=== PATIENT | female | born 1965 | race Caucasian/White ===

== ENCOUNTER 2021-02-24 13:40 | Inpatient (IN) | payer BC ==
[~2021-02-24] VITALS: Ht 167.6 cm; Wt 86.2 kg
[~2021-02-24 13:40] MED LIST: ASPIRIN EC81 MG PO; FENOFIBRATE134 MG PO; LISINOPRIL10 MG PO; LOSARTAN POTAS100 MG PO; LOSARTAN POTASS50 MG PO; NOVOLOG 10100 UNITS2 SQ; OMNICEF 300 MG300 MG PO; PHENERGAN 12.12.5 M1 PO
[2021-02-24 14:19] LABS: HEMOGLOBIN 9.2 gm/dl (12.3-15.3); RED BLOOD COUNT 2.9 M/UL (4.00-5.10); WHITE BLOOD COUNT 6.2 K/UL (4.5-11.0)
[2021-02-24] MEDS ORDERED: ALDACTONE50 MG PO (16:22)
[2021-02-24] MEDS ORDERED: KLOR-CON M1010 MEQ PO (16:23)
[2021-02-24] MEDS ORDERED: LASIX 40 MG TAB40 MG PO (16:31)
[2021-02-24] MEDS ORDERED: CYMBALTA30 MG PO (16:32)
[2021-02-24] MEDS ORDERED: COZAAR 25MG TAB25 MG PO (16:33)
[2021-02-24] MEDS ORDERED: FOLIC ACID0.4 MG PO (16:51)
[2021-02-24] MEDS ORDERED: AMLODIPINE BESY10 MG PO (16:51)
[2021-02-24] MEDS ORDERED: ELDERBERRY-VIT1 EACH PO (16:52)
[2021-02-24] MEDS ORDERED: VITAMIN D3125 MCG PO (16:52)
[2021-02-24] MEDS ORDERED: LEVOTHYROXINE150 MCG PO (18:43)
[2021-02-24] MEDS ORDERED: LANTUS INS100 UTS/ML SQ (18:43)
[2021-02-25 05:44] LABS: HEMOGLOBIN 8.1 gm/dl (12.3-15.3); WHITE BLOOD COUNT 4.7 K/UL (4.5-11.0)
[2021-02-25 05:45] LABS: RED BLOOD COUNT 2.57 M/UL (4.00-5.10)
[2021-02-26 05:58] LABS: HEMOGLOBIN 7.4 gm/dl (12.3-15.3); RED BLOOD COUNT 2.36 M/UL (4.00-5.10); WHITE BLOOD COUNT 4.9 K/UL (4.5-11.0)
[2021-02-27 04:14] LABS: HEMOGLOBIN 7.5 gm/dl (12.3-15.3); RED BLOOD COUNT 2.34 M/UL (4.00-5.10); WHITE BLOOD COUNT 5.5 K/UL (4.5-11.0)
--- NOTE | 2021-02-27 04:46 | NUR ---
ATTEMPTS TO COLLECT UA ALL SHIFT HAVE FAILED. PT HAS BEEN USING EXTERNAL PUREWICK CATHETER BUT DISLODGED CATHETER WITH ONLY VOID OF SHIFT AND UNABLE TO COLLECT UA SAMPLE D/T BEING IN BRIEF. PT IS TOO WEAK TO GET TO [facility].
--- NOTE | 2021-02-27 05:33 | NUR ---
PT BLADDER SCANNED AT 0530 ON 02/27/21. THE MOST URINE AMOUNT DISCOVERED WAS 80 ML.
[2021-02-28 03:14] LABS: HEMOGLOBIN 7.8 gm/dl (12.3-15.3); RED BLOOD COUNT 2.47 M/UL (4.00-5.10); WHITE BLOOD COUNT 4.5 K/UL (4.5-11.0)
[2021-02-28 15:26] LABS: URINE TOTAL PROTEIN 228 mg/dl
[2021-03-01 13:10] LABS: COMPLEMENT C3, SERUM 114 mg/dL (82-167); COMPLEMENT C4, SERUM 29 mg/dL (12-38)
[2021-03-01 15:10] LABS: A/G RATIO 0.5 (0.7-1.7); ALBUMIN 1.7 g/dL (2.9-4.4); ALPHA-1-GLOBULIN 0.2 g/dL (0.0-0.4); ALPHA-2-GLOBULIN 0.8 g/dL (0.4-1.0); ANTI-DSDNA ANTIBODIES 10 IU/mL (0-9); ATYPICAL PANCA <1:20 titer (Neg:<1:20); BETA GLOBULIN 0.8 g/dL (0.7-1.3); CYTOPLASMIC (C-ANCA) <1:20 titer (Neg:<1:20); GAMMA GLOBULIN 2.2 g/dL (0.4-1.8); IMMUNOGLOBULIN A, QN, SERUM 565 mg/dL (87-352); IMMUNOGLOBULIN G, QN, SERUM 2184 mg/dL (586-1602); IMMUNOGLOBULIN M, QN, SERUM 137 mg/dL (26-217); M-SPIKE Not Observed g/dL (Not Observed); PERINUCLEAR (P-ANCA) <1:20 titer (Neg:<1:20); PROTEIN, TOTAL, SERUM 5.7 g/dL (6.0-8.5)
[2021-03-02 05:27] LABS: HEMOGLOBIN 6.1 gm/dl (12.3-15.3); RED BLOOD COUNT 1.95 M/UL (4.00-5.10); WHITE BLOOD COUNT 2.9 K/UL (4.5-11.0)
[2021-03-02 07:11] LABS: HBSAG SCREEN Negative (Negative); HEP B CORE AB, TOT Negative (Negative); HEP C VIRUS AB <0.1 (0.0-0.9)
[2021-03-03 03:35] LABS: HEMOGLOBIN 8.8 gm/dl (12.3-15.3); WHITE BLOOD COUNT 3.6 K/UL (4.5-11.0)
[2021-03-03 03:46] LABS: RED BLOOD COUNT 2.86 M/UL (4.00-5.10)
[2021-03-04 03:49] LABS: HEMOGLOBIN 9.1 gm/dl (12.3-15.3); RED BLOOD COUNT 2.95 M/UL (4.00-5.10); WHITE BLOOD COUNT 3.7 K/UL (4.5-11.0)
[2021-03-04 14:11] LABS: ANTI-DSDNA ANTIBODIES 9 IU/mL (0-9)
[2021-03-06 06:51] LABS: HEMOGLOBIN 8.6 gm/dl (12.3-15.3); RED BLOOD COUNT 2.75 M/UL (4.00-5.10); WHITE BLOOD COUNT 3.4 K/UL (4.5-11.0)
[2021-03-07 05:04] LABS: HEMOGLOBIN 9.5 gm/dl (12.3-15.3); WHITE BLOOD COUNT 3.3 K/UL (4.5-11.0)
[2021-03-07 05:13] LABS: RED BLOOD COUNT 3.1 M/UL (4.00-5.10)
[2021-03-08 05:03] LABS: HEMOGLOBIN 10.3 gm/dl (12.3-15.3); RED BLOOD COUNT 3.34 M/UL (4.00-5.10)
[2021-03-08 05:06] LABS: WHITE BLOOD COUNT 5.6 K/UL (4.5-11.0)
[2021-03-09 04:09] LABS: HEMOGLOBIN 8.4 gm/dl (12.3-15.3)
[2021-03-09 04:12] LABS: RED BLOOD COUNT 2.7 M/UL (4.00-5.10); WHITE BLOOD COUNT 4.1 K/UL (4.5-11.0)
[2021-03-10 03:45] LABS: HEMOGLOBIN 8.7 gm/dl (12.3-15.3); RED BLOOD COUNT 2.81 M/UL (4.00-5.10); WHITE BLOOD COUNT 4.9 K/UL (4.5-11.0)
[2021-03-10 10:14] LABS: HBSAG SCREEN Negative (Negative); HEP A AB, IGM Negative (Negative); HEP B CORE AB, IGM Negative (Negative); HEP C VIRUS AB <0.1 (0.0-0.9)
[2021-03-10] MEDS ORDERED: THERAGRAN M TAB1 EA PO (10:49)
[2021-03-10] MEDS ORDERED: LEVOTHYROXINE100 MCG PO (10:49)
[2021-03-10] MEDS ORDERED: TOPROL XL100 MG PO (10:49)
[2021-03-10] MEDS ORDERED: BUMETANIDE1 MG PO (10:49)
[2021-03-10] MEDS ORDERED: ZOFRAN ODT 4 MG4 MG PO (10:51)
[2021-03-10 15:14] LABS: ACTIN (SMOOTH MUSCLE) ANTIBODY 9 Units (0-19); MITOCHONDRIAL (M2) ANTIBODY <20.0 Units (0.0-20.0)
== END 2021-03-10 13:30 | disposition home health service (06) | DRG 682 ==
LOC: ER1 13:40 → CDU 16:14 → M/S 16:14
PROVIDERS: Emergency Medicine; Internal Medicine; Internal Medicine Nephrology; Physician Assistant Medical; ADMIT Internal Medicine Infectious Disease
PROC: 30233N1 Transfusion of Nonautologous Red Blood Cells into Peripheral Vein, Percutaneous Approach (ICD-10-PCS; principal; 2021-03-02)
DX: N17.9 Acute kidney failure, unspecified (principal); I50.33 Acute on chronic diastolic (congestive) heart failure; K76.7 Hepatorenal syndrome; E87.3 Alkalosis; R18.8 Other ascites; D62 Acute posthemorrhagic anemia; I13.0 Hypertensive heart and chronic kidney disease with heart failure and stage 1 through stage 4 chronic kidney disease, or unspecified chronic kidney disease; Z20.822 Contact with and (suspected) exposure to COVID-19; E10.22 Type 1 diabetes mellitus with diabetic chronic kidney disease; I12.9 Hypertensive chronic kidney disease with stage 1 through stage 4 chronic kidney disease, or unspecified chronic kidney disease; K74.60 Unspecified cirrhosis of liver; N18.30 Chronic kidney disease, stage 3 unspecified; E10.649 Type 1 diabetes mellitus with hypoglycemia without coma; E87.6 Hypokalemia; K75.81 Nonalcoholic steatohepatitis (NASH); F10.10 Alcohol abuse, uncomplicated; E83.42 Hypomagnesemia; I27.20 Pulmonary hypertension, unspecified; E88.09 Other disorders of plasma-protein metabolism, not elsewhere classified; I50.84 End stage heart failure; R80.9 Proteinuria, unspecified; D50.9 Iron deficiency anemia, unspecified; E03.9 Hypothyroidism, unspecified; E87.70 Fluid overload, unspecified; Z90.49 Acquired absence of other specified parts of digestive tract; Z79.4 Long term (current) use of insulin; Z79.899 Other long term (current) drug therapy; Z83.3 Family history of diabetes mellitus; Z80.8 Family history of malignant neoplasm of other organs or systems
CPT/HCPCS: ECHO; 36415; 36430; 71045; 76705; 80048; 80053; 80074; 82105; 82550; 82553; 82570; 82607; 82728; 82746; 82784; 82962; 83036; 83516; 83520; 83540; 83550; 83735; 83874; 83880; 83883; 84100; 84132; 84155; 84156; 84165; 84439; 84443; 84484; 85018; 85025; 85027; 85610; 86038; 86060; 86160; 86162; 86225; 86256; 86334; 86704; 86706; 86708; 86803; 86850; 86900; 86901; 86920; 87340; 89050; 93005; 93306; 97110-GP-CQ; 97116-GP-CQ; 97161; 97530-GP-CQ; 99285; C9113; J0360; J1940; J2405; J3475; J7050; P9016; P9047; U0002

== ENCOUNTER 2021-03-11 15:17 | Inpatient (IN) | payer BC ==
[~2021-03-11] VITALS: Ht 162.6 cm; Wt 77.0 kg
[~2021-03-11 15:17] MED LIST changes: +ALDACTONE50 MG PO; +AMLODIPINE BESY10 MG PO; +BUMETANIDE1 MG PO; +COZAAR 25MG TAB25 MG PO; +CYMBALTA30 MG PO; +ELDERBERRY-VIT1 EACH PO; +FOLIC ACID0.4 MG PO; +KLOR-CON M1010 MEQ PO; +LANTUS INS100 UTS/ML SQ; +LASIX 40 MG TAB40 MG PO; +LEVOTHYROXINE100 MCG PO; +LEVOTHYROXINE150 MCG PO; +THERAGRAN M TAB1 EA PO; +TOPROL XL100 MG PO; +VITAMIN D3125 MCG PO; +ZOFRAN ODT 4 MG4 MG PO
[2021-03-11 17:13] LABS: HEMOGLOBIN 7.6 gm/dl (12.3-15.3)
[2021-03-11 17:35] LABS: BUN/CREATININE RATIO 11 (0-10)
[2021-03-11 17:44] LABS: RED BLOOD COUNT 2.4 M/UL (4.00-5.10)
[2021-03-12 03:05] LABS: HEMOGLOBIN 8.3 gm/dl (12.3-15.3)
[2021-03-12 03:23] LABS: RED BLOOD COUNT 2.7 M/UL (4.00-5.10); WHITE BLOOD COUNT 13.1 K/UL (4.5-11.0)
[2021-03-13 03:37] LABS: HEMOGLOBIN 7.9 gm/dl (12.3-15.3); RED BLOOD COUNT 2.53 M/UL (4.00-5.10)
[2021-03-13 03:39] LABS: WHITE BLOOD COUNT 6.7 K/UL (4.5-11.0)
[2021-03-13 04:02] LABS: BUN/CREATININE RATIO 12 (0-10)
[2021-03-14 05:37] LABS: HEMOGLOBIN 7.4 gm/dl (12.3-15.3); RED BLOOD COUNT 2.38 M/UL (4.00-5.10)
[2021-03-14 05:39] LABS: WHITE BLOOD COUNT 3.7 K/UL (4.5-11.0)
[2021-03-15 05:27] LABS: HEMOGLOBIN 7.4 gm/dl (12.3-15.3); RED BLOOD COUNT 2.41 M/UL (4.00-5.10); WHITE BLOOD COUNT 4.3 K/UL (4.5-11.0)
[2021-03-15 15:12] LABS: ORGANISM ID Not indicated. (.); SPECIMEN SOURCE Urine (.); STREPTOCOCCUS PNEUMONIAE AG Negative (Negative)
[2021-03-16 06:48] LABS: HEMOGLOBIN 8.4 gm/dl (12.3-15.3); RED BLOOD COUNT 2.73 M/UL (4.00-5.10)
[2021-03-18] MEDS ORDERED: THERAGRAN M TAB1 EA PO (14:04)
[2021-03-18] MEDS ORDERED: XIFAXAN 550 MG550 MG GT (14:04)
[2021-03-18] MEDS ORDERED: LEVOTHYROXINE100 MCG PO (14:04)
[2021-03-18] MEDS ORDERED: CLONIDINE HCL0.3 MG PO (14:28)
[2021-03-18] MEDS ORDERED: CATAPRES 0.1MG0.1 MG PO (14:28)
[2021-03-18] MEDS ORDERED: HUMALOG 10100 UNITS/ SC (14:28)
[2021-03-18] MEDS ORDERED: COZAAR 50MG TAB50 MG PO (14:28)
[2021-03-18] MEDS ORDERED: XIFAXAN 550 MG550 MG PO (14:54)
--- NOTE | 2021-03-19 16:49 | NUR ---
REPORT CALLED TO [facility] AT THIS TIME. SPOKE WITH LETICIA GTZ
== END 2021-03-20 04:12 | DRG 871 ==
LOC: ER1 15:17 → CDU 18:05 → MED SURG 4 18:05 → CCU 23:34 → MED SURG 4 03-15 17:03
PROVIDERS: Internal Medicine Nephrology; Internal Medicine Pulmonary Disease; Physician Assistant; ADMIT Internal Medicine Infectious Disease
PROC: 3E033XZ Introduction of Vasopressor into Peripheral Vein, Percutaneous Approach (ICD-10-PCS; principal; 2021-03-11)
PROC: 30233N1 Transfusion of Nonautologous Red Blood Cells into Peripheral Vein, Percutaneous Approach (ICD-10-PCS; 2021-03-11)
PROC: 0BH17EZ Insertion of Endotracheal Airway into Trachea, Via Natural or Artificial Opening (ICD-10-PCS; 2021-03-11)
PROC: 5A1945Z Respiratory Ventilation, 24-96 Consecutive Hours (ICD-10-PCS; 2021-03-11)
PROC: 02H633Z Insertion of Infusion Device into Right Atrium, Percutaneous Approach (ICD-10-PCS; 2021-03-11)
PROC: B548ZZA Ultrasonography of Superior Vena Cava, Guidance (ICD-10-PCS; 2021-03-11)
DX: A41.81 Sepsis due to Enterococcus (principal); E10.10 Type 1 diabetes mellitus with ketoacidosis without coma; Z20.822 Contact with and (suspected) exposure to COVID-19; R65.21 Severe sepsis with septic shock; J96.21 Acute and chronic respiratory failure with hypoxia; J96.22 Acute and chronic respiratory failure with hypercapnia; N17.0 Acute kidney failure with tubular necrosis; J69.0 Pneumonitis due to inhalation of food and vomit; G93.41 Metabolic encephalopathy; K72.00 Acute and subacute hepatic failure without coma; J96.01 Acute respiratory failure with hypoxia; N18.4 Chronic kidney disease, stage 4 (severe); K76.6 Portal hypertension; K86.0 Alcohol-induced chronic pancreatitis; K52.1 Toxic gastroenteritis and colitis; N30.00 Acute cystitis without hematuria; E10.22 Type 1 diabetes mellitus with diabetic chronic kidney disease; K70.31 Alcoholic cirrhosis of liver with ascites; E87.5 Hyperkalemia; F10.10 Alcohol abuse, uncomplicated; T47.3X5A Adverse effect of saline and osmotic laxatives, initial encounter; E03.9 Hypothyroidism, unspecified; D63.1 Anemia in chronic kidney disease; E78.5 Hyperlipidemia, unspecified; E88.09 Other disorders of plasma-protein metabolism, not elsewhere classified; E87.70 Fluid overload, unspecified; K75.81 Nonalcoholic steatohepatitis (NASH); R53.81 Other malaise; I27.20 Pulmonary hypertension, unspecified; Z79.4 Long term (current) use of insulin; Z90.49 Acquired absence of other specified parts of digestive tract; Z98.42 Cataract extraction status, left eye; Z98.41 Cataract extraction status, right eye; Z83.3 Family history of diabetes mellitus; Z80.0 Family history of malignant neoplasm of digestive organs
CPT/HCPCS: 0240U; 31500; 36415; 36430; 36600; 71045; 80048; 80053; 81001; 82009; 82140; 82550; 82553; 82803; 82962; 83605; 83615; 83690; 83735; 83874; 83880; 84100; 84132; 84484; 85025; 85362; 85384; 85610; 85730; 86140; 86850; 86900; 86901; 86920; 87040; 87070; 87077; 87081; 87086; 87186; 87205; 87278; 87899; 94002; 94003; 94664; 94760; 96374; 96375; 97110; 97110-GP-CQ; 97116-GP-CQ; 97162; 97166; 97530; 97530-GP-CQ; 99285; C9113; J0295; J0330; J0610; J0692; J1644; J1956; J2185; J2270; J2704; J3370; J3411; J3475; J3480; J7030; J7050; P9016; P9047

== ENCOUNTER 2021-05-30 18:48 | Inpatient (IN) | payer BC ==
[~2021-05-30] VITALS: Ht 167.6 cm; Wt 59.0 kg
[~2021-05-30 18:48] MED LIST changes: +CATAPRES 0.1MG0.1 MG PO; +CLONIDINE HCL0.3 MG PO; +COZAAR 50MG TAB50 MG PO; +HUMALOG 10100 UNITS/ SC; +XIFAXAN 550 MG550 MG GT; +XIFAXAN 550 MG550 MG PO
[2021-05-30 19:47] LABS: HEMOGLOBIN 9.5 gm/dl (12.3-15.3); RED BLOOD COUNT 3.07 M/UL (4.00-5.10); WHITE BLOOD COUNT 17.5 K/UL (4.5-11.0)
[2021-05-30] MEDS ORDERED: CARVEDILOL25 MG PO (22:12)
[2021-05-30] MEDS ORDERED: VITAMIN D21250 MCG PO (22:13)
[2021-05-30] MEDS ORDERED: LANTUS INS100 UTS/M2 SQ (22:14)
[2021-05-30] MEDS ORDERED: HUMALOG100 UNIT/1 SC (22:14)
[2021-05-30] MEDS ORDERED: CONSTULOSE10 GM/15 M PO (22:15)
[2021-05-30] MEDS ORDERED: METRONIDAZOLE500 MG PO (22:18)
[2021-05-30] MEDS ORDERED: ONDANSETRON HCL4 MG PO (22:19)
[2021-05-30] MEDS ORDERED: NIFEDIPINE ER60 M1 PO (22:19)
--- NOTE | 2021-05-31 | NUR ---
0000- CRITICAL LAB DATA RECIEVED PTS LABS IMPROVING, WCTM
[2021-05-31 04:32] LABS: HEMOGLOBIN 7.8 gm/dl (12.3-15.3)
[2021-05-31 04:34] LABS: RED BLOOD COUNT 2.58 M/UL (4.00-5.10); WHITE BLOOD COUNT 10.1 K/UL (4.5-11.0)
--- NOTE | 2021-05-31 04:50 | NUR ---
0450- CRITICAL GLUCOSE RECIEVED, LAB VALUES TRENDING DOWNWARD
[2021-06-01 03:59] LABS: HEMOGLOBIN 7.3 gm/dl (12.3-15.3); RED BLOOD COUNT 2.43 M/UL (4.00-5.10); WHITE BLOOD COUNT 8.4 K/UL (4.5-11.0)
== END 2021-06-01 19:18 | disposition home or self-care (01) | DRG 637 ==
LOC: ER1 18:48 → CCU 20:41 → CDU 20:41 → CCU 05-31 03:30
PROVIDERS: Family Medicine; Surgery; ADMIT Internal Medicine
PROC: 5A1D70Z Performance of Urinary Filtration, Intermittent, Less than 6 Hours Per Day (ICD-10-PCS; principal; 2021-05-31)
DX: E10.10 Type 1 diabetes mellitus with ketoacidosis without coma (principal); N18.6 End stage renal disease; N39.0 Urinary tract infection, site not specified; Z20.822 Contact with and (suspected) exposure to COVID-19; I27.20 Pulmonary hypertension, unspecified; D63.1 Anemia in chronic kidney disease; E03.9 Hypothyroidism, unspecified; E10.22 Type 1 diabetes mellitus with diabetic chronic kidney disease; F10.10 Alcohol abuse, uncomplicated; E10.65 Type 1 diabetes mellitus with hyperglycemia; K74.60 Unspecified cirrhosis of liver; Z91.14 Patient's other noncompliance with medication regimen; Z87.01 Personal history of pneumonia (recurrent); Z98.42 Cataract extraction status, left eye; Z98.41 Cataract extraction status, right eye; Z90.49 Acquired absence of other specified parts of digestive tract; Z98.890 Other specified postprocedural states; Z83.3 Family history of diabetes mellitus; Z80.0 Family history of malignant neoplasm of digestive organs
CPT/HCPCS: 36415; 36600; 71045; 80048; 80053; 80202; 81001; 82009; 82140; 82550; 82553; 82803; 82962; 83605; 83735; 84484; 85025; 87040; 87077; 87086; 87186; 90937; 93005; 96374; 96375; 99285; C9113; J0696; J2270; J2405; J3370; J3480; J7070; U0002

== ENCOUNTER 2021-06-24 05:53 | Inpatient (IN) | payer BC ==
[~2021-06-24] VITALS: Ht 167.6 cm; Wt 56.0 kg
[~2021-06-24 05:53] MED LIST changes: +CARVEDILOL25 MG PO; +CONSTULOSE10 GM/15 M PO; +HUMALOG100 UNIT/1 SC; +LANTUS INS100 UTS/M2 SQ; +METRONIDAZOLE500 MG PO; +NIFEDIPINE ER60 M1 PO; +ONDANSETRON HCL4 MG PO; +VITAMIN D21250 MCG PO
[2021-06-24 06:49] LABS: HEMOGLOBIN 8.8 gm/dl (12.3-15.3); WHITE BLOOD COUNT 10.2 K/UL (4.5-11.0)
[2021-06-24] MEDS ORDERED: PHENERGAN 25 MG25 M1 PO (11:09)
[2021-06-24] MEDS ORDERED: DULOXETINE HCL30 MG PO (11:10)
[2021-06-24] MEDS ORDERED: METOPROLOL SUC100 MG PO (11:10)
[2021-06-24] MEDS ORDERED: LISINOPRIL10 MG PO (11:10)
[2021-06-24] MEDS ORDERED: BASAGLAR K100 UNIT/1 SQ (11:11)
[2021-06-24] MEDS ORDERED: SPIRONOLACTONE50 MG PO (11:12)
[2021-06-24] MEDS ORDERED: NOVOLOG FL100 UNIT/1 SQ (11:12)
[2021-06-24] MEDS ORDERED: LEVOTHYROXINE100 MCG PO (11:14)
[2021-06-25 05:22] LABS: HEMOGLOBIN 7.8 gm/dl (12.3-15.3); WHITE BLOOD COUNT 8.5 K/UL (4.5-11.0)
[2021-06-25 05:24] LABS: RED BLOOD COUNT 2.68 M/UL (4.00-5.10)
== END 2021-06-26 13:45 | disposition home health service (06) | DRG 637 ==
LOC: ER1 05:53 → CDU 08:29 → CCU 10:11 → MED SURG 4 06-25 14:02
PROVIDERS: Internal Medicine Nephrology; Physician Assistant; Physician Assistant Medical; ADMIT Internal Medicine
DX: E10.10 Type 1 diabetes mellitus with ketoacidosis without coma (principal); N18.6 End stage renal disease; Z20.822 Contact with and (suspected) exposure to COVID-19; E43 Unspecified severe protein-calorie malnutrition; I12.0 Hypertensive chronic kidney disease with stage 5 chronic kidney disease or end stage renal disease; G93.40 Encephalopathy, unspecified; Z68.1 Body mass index [BMI] 19.9 or less, adult; K74.60 Unspecified cirrhosis of liver; F10.10 Alcohol abuse, uncomplicated; E03.9 Hypothyroidism, unspecified; I27.20 Pulmonary hypertension, unspecified; D63.1 Anemia in chronic kidney disease; I45.81 Long QT syndrome; Z91.15 Patient's noncompliance with renal dialysis; Z98.42 Cataract extraction status, left eye; Z98.41 Cataract extraction status, right eye; Z90.49 Acquired absence of other specified parts of digestive tract; Z83.3 Family history of diabetes mellitus; Z80.0 Family history of malignant neoplasm of digestive organs
CPT/HCPCS: 36415; 71045; 80048; 80053; 81001; 82009; 82550; 82553; 82728; 82800; 82962; 83540; 83550; 83735; 83874; 84484; 85007; 85025; 85027; 93005; 96374; 96375; 99285; C9113; J1650; J2405; J3480; U0002